=== PATIENT | female | born 1940 | race Caucasian/White ===

== ENCOUNTER 2019-08-20 17:33 | Observation (INO) ==
[2019-08-20] MEDS ORDERED: Isovue-370 500 ML BOTTLE IVP ONE (17:55)
[2019-08-20 18:06] LABS: Mean Corpuscular HGB Conc 33.3 g/dL (31.6-35.5); Mean Corpuscular Hemoglobin 30.4 pg (28.0-33.3); Mean Corpuscular Volume 91.3 fL (83.0-100.0); Mean Platelet Volume 9.9 fL (9.4-12.4); Platelet Count 278 K/mcL (140-400); Red Cell Distribution Width 12.3 % (11.5-14.5); White Blood Count 9.2 K/mcL (4.3-11.1)
[2019-08-20 18:13] LABS: INR 1.1; Prothrombin Time 12.3 Seconds (9.4-12.1)
[2019-08-20 18:15] LABS: Activated Partial Thrombo Time 59.4 Seconds (26.0-36.0)
[2019-08-20 18:32] LABS: BUN/Creatinine Ratio 16 (6-26); Blood Urea Nitrogen 13 mg/dL (8-23); Calcium 9.7 mg/dL (8.6-10.3); Carbon Dioxide 29 mEq/L (23-29); Chloride 105 mEq/L (98-107); Glucose 78 mg/dL (70-105); Osmolality,Calculated 291 (280-300); Potassium 3.6 mEq/L (3.5-5.1); Sodium 141 mEq/L (136-145); eGFR For African Americans > 60 (> 60); eGFR For Non-African Americans > 60 (> 60)
[2019-08-20 18:33] LABS: Troponin I < 0.03 ng/mL (< 0.04)
[2019-08-20] MEDS ORDERED: Naloxone 0.4 MG/ML INJ IVP PRN (20:16)
[2019-08-20] MEDS ORDERED: Nitroglycerin 0.4 MG TAB.SUBL SL PRN (20:16)
[2019-08-20] MEDS ORDERED: Acetaminophen 325 MG TABLET PO ONE (21:54)
[2019-08-20] MEDS: Famotidine 20 MG TABLET PO SCH (23:02)
[2019-08-21 05:39] LABS: Basophils # 0.1 K/mcL (0.0-0.2); Basophils % 1.1 %; Eosinophils # 0.4 K/mcL (0.0-0.6); Hematocrit 38.4 % (35.3-44.9); Immature Granulocytes % 0.3 % (0-4); Lymphocytes # 2.8 K/mcL (0.6-4.6); Lymphocytes % 39.9 %; Mean Corpuscular HGB Conc 33.9 g/dL (31.6-35.5); Mean Corpuscular Hemoglobin 31.2 pg (28.0-33.3); Mean Corpuscular Volume 92.1 fL (83.0-100.0); Mean Platelet Volume 9.9 fL (9.4-12.4); Monocytes # 0.7 K/mcL (0.0-1.3); Monocytes % 10.3 %; Platelet Count 257 K/mcL (140-400); Red Blood Count 4.17 M/mcL (3.82-4.97); Red Cell Distribution Width 12.3 % (11.5-14.5); Segmented Neutrophils % 43.4 %
[2019-08-21] MEDS ORDERED: Cholecalciferol (D-3) 1,000 UNIT (25MCG) TABLET PO SCH (09:00)
[2019-08-21] MEDS ORDERED: NON-FORMULARY MEDICATION 1 EACH EACH (Roflumilast [Daliresp] 500 MCG) PO SCH (09:00)
[2019-08-21] MEDS ORDERED: Aspirin Enteric Coated 81 MG Tablet PO SCH (09:00)
[2019-08-21] MEDS ORDERED: Isosorbide MONOnitrate (24 HR) 30 MG TAB.ER.24H PO SCH (09:00)
[2019-08-21] MEDS ORDERED: Vitamin E 200 UNIT (90MG) CAPSULE PO SCH (09:00)
[2019-08-21] MEDS ORDERED: Cyanocobalamin (B-12) 1,000 MCG TABLET PO SCH (09:00)
[2019-08-21] MEDS: Famotidine 20 MG TABLET PO SCH (09:09)
[2019-08-21 10:26] LABS: BUN/Creatinine Ratio 14 (6-26); Blood Urea Nitrogen 12 mg/dL (8-23); Calcium 9.6 mg/dL (8.6-10.3); Carbon Dioxide 30 mEq/L (23-29); Chloride 106 mEq/L (98-107); Glucose 99 mg/dL (70-105); Osmolality,Calculated 292 (280-300); Potassium 4.3 mEq/L (3.5-5.1); Sodium 141 mEq/L (136-145); eGFR For African Americans > 60 (> 60); eGFR For Non-African Americans > 60 (> 60)
[2019-08-21] MEDS ORDERED: Ketorolac 30 MG/ML VIAL IVP ONE (11:14)
[2019-08-21 11:29] VITALS: BP 99/55
[2019-08-21] MEDS ORDERED: Famotidine 20 MG TABLET PO SCH (21:00)
== END 2019-08-21 15:27 | disposition home or self-care (01) ==
LOC: 3BNU 17:33 → EMEROOARM 17:33 → SUATTDRO 20:07 → 3BNU 20:43
PROVIDERS: ADMIT Internal Medicine; ATTEND Internal Medicine

== ENCOUNTER 2021-01-16 12:24 | Observation (INO) ==
[2021-01-16 13:38] LABS: Basophils # 0.1 K/mcL (0.0-0.2); Basophils % 0.6 %; Eosinophils # 0.2 K/mcL (0.0-0.6); Eosinophils % 2.8 %; Hematocrit 36.4 % (35.3-44.9); Hemoglobin 12.5 g/dL (11.5-15.4); Immature Granulocytes % 0.4 % (0-4); Lymphocytes # 1.7 K/mcL (0.6-4.6); Lymphocytes % 22.2 %; Mean Corpuscular HGB Conc 34.3 g/dL (31.6-35.5); Mean Corpuscular Hemoglobin 30.6 pg (28.0-33.3); Mean Corpuscular Volume 89.2 fL (83.0-100.0); Monocytes # 0.6 K/mcL (0.0-1.3); Monocytes % 7.8 %; Neutrophils # 5.1 K/mcL (1.6-8.9); Platelet Count 248 K/mcL (140-400); Red Blood Count 4.08 M/mcL (3.82-4.97); Red Cell Distribution Width 12.5 % (11.5-14.5); Segmented Neutrophils % 66.2 %; White Blood Count 7.7 K/mcL (4.3-11.1)
[2021-01-16 14:03] LABS: Alanine Aminotransferase 34 Units/L (7-52); Albumin 3.8 g/dL (3.5-5.7); Albumin/Globulin Ratio 1.8 (1.1-2.2); Alkaline Phosphatase 82 Units/L (34-104); Aspartate Amino Transferase 21 Units/L (13-39); BUN/Creatinine Ratio 20 (6-26); Bilirubin,Direct 0.2 mg/dL (0.0-0.2); Bilirubin,Indirect 0.9 mg/dL (0.0-1.0); Bilirubin,Total 1.1 mg/dL (0.3-1.0); Blood Urea Nitrogen 13 mg/dL (8-23); Calcium 9.3 mg/dL (8.6-10.3); Carbon Dioxide 24 mEq/L (23-29); Chloride 109 mEq/L (98-107); Globulin 2.1 g/dL (2.4-3.5); Glucose 86 mg/dL (70-105); Osmolality,Calculated 291 (280-300); Potassium 3.6 mEq/L (3.5-5.1); Sodium 141 mEq/L (136-145); Total Protein 5.9 g/dL (6.4-8.9); Troponin I < 0.03 ng/mL (< 0.04); eGFR For African Americans > 60 (> 60); eGFR For Non-African Americans > 60 (> 60)
[2021-01-16 14:52] LABS: Lipase 27 Units/L (11-82)
[2021-01-16 15:16] LABS: Bacteria,Urine Few per hpf (None-Few); Bilirubin,Urine Negative (Negative); Blood,Urine Negative (Negative); Clarity,Urine Clear (Clear); Color,Urine Light-Yellow (Yellow); Glucose,Urine (UA) Normal (Normal); Ketones,Urine Negative (Negative); Leukocyte Esterase,Urine Moderate (Negative); Nitrite,Urine Negative (Negative); Protein,Urine Trace mg/dL (Neg-Trace); RBC,Urine 0-3 per hpf (0-3); Specific Gravity,Urine 1.015 (1.010-1.025); Squamous Epithelial Cell,Urine Few per hpf (None-Few); Urobilinogen,Urine Normal (Normal)
[2021-01-16] MEDS ORDERED: Aspirin 81 MG TAB.CHEW PO STA (15:27)
[2021-01-16] MEDS ORDERED: Ondansetron 4 MG/2 ML VIAL IVP PRN (15:31)
[2021-01-16] MEDS ORDERED: Acetaminophen 325 MG TABLET PO PRN (15:31)
[2021-01-16] MEDS ORDERED: Naloxone 0.4 MG/ML INJ IVP PRN (15:31)
[2021-01-16] MEDS ORDERED: Perflutren Lipid Microsphere 1.3 ML in 0.9 % Sodium Chloride 8.7 ML IVP PRN (16:21)
[2021-01-16] MEDS ORDERED: Nitroglycerin 0.4 MG TAB.SUBL SL PRN (16:22)
[2021-01-16] MEDS ORDERED: Ipratropium/Albuterol Neb 3 ML IH PRN (16:28)
[2021-01-16] MEDS ORDERED: Melatonin 3 MG TABLET PO PRN (17:02)
[2021-01-17 02:25] LABS: Basophils # 0.1 K/mcL (0.0-0.2); Eosinophils # 0.4 K/mcL (0.0-0.6); Eosinophils % 4.6 %; Hemoglobin 12.7 g/dL (11.5-15.4); Immature Granulocytes % 0.4 % (0-4); Lymphocytes # 2.2 K/mcL (0.6-4.6); Lymphocytes % 28.5 %; Mean Corpuscular HGB Conc 33.4 g/dL (31.6-35.5); Mean Corpuscular Hemoglobin 30.2 pg (28.0-33.3); Mean Corpuscular Volume 90.5 fL (83.0-100.0); Monocytes # 0.7 K/mcL (0.0-1.3); Monocytes % 9.1 %; Neutrophils # 4.3 K/mcL (1.6-8.9); Platelet Count 232 K/mcL (140-400); Red Cell Distribution Width 12.6 % (11.5-14.5); Segmented Neutrophils % 56.4 %; White Blood Count 7.7 K/mcL (4.3-11.1)
[2021-01-17 02:33] LABS: INR 1.1
[2021-01-17 02:40] LABS: BUN/Creatinine Ratio 23 (6-26); Blood Urea Nitrogen 20 mg/dL (8-23); Calcium 9.1 mg/dL (8.6-10.3); Carbon Dioxide 23 mEq/L (23-29); Chloride 109 mEq/L (98-107); Chol/HDL Ratio 3.3 (0-4.9); Cholesterol 157 mg/dL (< 200); Glucose 100 mg/dL (70-105); HDL Cholesterol 47 mg/dL (40-59); LDL Cholesterol,Calculated 94 mg/dL (< 100); Osmolality,Calculated 295 (280-300); Potassium 3.9 mEq/L (3.5-5.1); Sodium 141 mEq/L (136-145); Triglycerides 82 mg/dL (< 150); eGFR For African Americans > 60 (> 60); eGFR For Non-African Americans > 60 (> 60)
[2021-01-17] MEDS ORDERED: Regadenoson 0.4 MG/5 ML SYRINGE IVP ONE (06:21)
[2021-01-17] MEDS ORDERED: *HR* Enoxaparin 40 MG/0.4 ML SYRINGE SQ SCH (07:00)
[2021-01-17] MEDS ORDERED: Cholecalciferol (D-3) 1,000 UNIT (25MCG) TABLET PO SCH (09:00)
[2021-01-17] MEDS ORDERED: Aspirin Enteric Coated 81 MG Tablet PO SCH (09:00)
[2021-01-17] MEDS ORDERED: Cyanocobalamin (B-12) 1,000 MCG TABLET PO SCH (09:00)
[2021-01-17] MEDS ORDERED: Isosorbide MONOnitrate (24 HR) 30 MG TAB.ER.24H PO SCH ×2 (09:00)
[2021-01-17] MEDS ORDERED: Famotidine 20 MG TABLET PO SCH (09:00)
[2021-01-17 09:29] VITALS: TEMP 97.5; O2SAT 98
[2021-01-17 10:30] VITALS: BP 119/67; PULSE 59
== END 2021-01-17 16:42 | disposition home or self-care (01) ==
LOC: 2ANU 12:24 → EMEROOARM 12:24 → SUATTDRO 15:37 → 2ANU 16:35
PROVIDERS: ADMIT Pharmacist; ATTEND Pharmacist